=== PATIENT | female | born 1990 | race Hispanic/Latino ===

== ENCOUNTER 2017-05-31 16:42 | Emergency (ER) | payer SELFPAY ==
[2017-05-31 16:51] VITALS: BP 133/88; PULSE 79; RESP 20; TEMP 97.7; O2SAT 99
--- NOTE | 2017-05-31 18:13 | ED PDOC ---
HPI: Female Pain Time Seen by Provider: 05/31/17 17:16 Chief Complaint (Nursing): Female Genitourinary Chief Complaint (Provider): Dysuria History Per: Patient History/Exam Limitations: no limitations Onset/Duration Of Symptoms: Other (month) Additional Complaint(s): Patient is a 26 y/o female with a past medical history of multiple kidney infections presenting to the emergency department for intermittent dysuria ongoing for one month with associated frequency. Reports that she was initially seen at [facility] for the pain and was diagnosed with a kidney infection and given Ciprofloxacin. However, she returned afterwards due to the lack of improvement of symptoms. This time she was prescribed levofloxacin and medication for a yeast infection. Reports finishing her medication on Saturday. The following Saturday (05/28/17) her symptoms returned. She went to [facility] again where bloodwork and a pelvic exam was done. Denies knowing the results of the bloodwork but reports that the urine results were consistent with a UTI finding. She was diagnosed with recurrent urinary tract infection and a yeast infection. Patient was also advised to go to the ED for evaluation. In addition, notes having mild nausea, some constipation initially which developed into diarrhea, some rectal pain, and occasional blood in her stool. Denies taking any medication for the pain, fever, chills, vomiting, or other complaints. PCP in [place]. Past Medical History Reviewed: Historical Data, Nursing Documentation, Vital Signs Vital Signs: Last Vital Signs Temp 97.7 F 05/31/17 16:47 Pulse 79 05/31/17 16:47 Resp 20 05/31/17 16:47 BP 133/88 05/31/17 16:47 Pulse Ox 99 05/31/17 16:47 - Medical History Other PMH: Kidney infection - Surgical History Other surgeries: leep procedure - Family History Family History: States: Other Other Family History: Sibling with kidney cancer - Social History Current smoker - smoking cessation education provided: No Ex-Smoker (has not smoked in the last 12 months): No Alcohol: Social Drugs: Denies - Home Medications Home Medications: Ambulatory Orders Medication Instructions Recorded Nitrofurantoin Macrocrystals 1 cap PO BID #14 cap 05/31/17 [Macrobid] - Allergies Allergies/Adverse Reactions: Allergies Allergy/AdvReac Type Severity Reaction Status Date / Time No Known Allergies Allergy Verified 05/31/17 16:51 Review of Systems ROS Statement: Except As Marked, All Systems Reviewed And Found Negative Constitutional: Negative for: Fever, Chills Gastrointestinal: Positive for: Nausea, Diarrhea, Constipation, Hematochezia ( some), Rectal Pain (some). Negative for: Vomiting Genitourinary Female: Positive for: Dysuria, Frequency Physical Exam - Reviewed Nursing Documentation Reviewed: Yes Vital Signs Reviewed: Yes - Physical Exam Appears: Positive for: Non-toxic, In Acute Distress (mild painful) Head Exam: Positive for: ATRAUMATIC, NORMOCEPHALIC Skin: Positive for: Warm, Dry Eye Exam: Positive for: EOMI, PERRL Neck: Positive for: Painless ROM, Supple Gastrointestinal/Abdominal: Positive for: Soft. Negative for: Tenderness Back: Positive for: Normal Inspection. Negative for: L CVA Tenderness, R CVA Tenderness, Decreased ROM Extremity: Positive for: Normal ROM. Negative for: Deformity Lymphatic: Negative for: Adenopathy Neurologic/Psych: Positive for: Alert. Negative for: Motor/Sensory Deficits - ECG O2 Sat by Pulse Oximetry: 99 (RA) Pulse Ox Interpretation: Normal Medical Decision Making Medical Decision Making: Time: 17:31 Initial impression: recurrent UTI Diagnoses include but are not limited to: renal colic, pyelonephritis, renal mass, vaginitis Initial plan: ED Urine Dipstick ED Urine Chlamydia/GC test Urine Culture Urinalysis Abdominal and transvaginal ultrasound Reevaluation 20:30 Transvaginal ultrasound reviewed. Findings noted as follows: FINDINGS: Uterus/cervix: 0.5 x 0.4 x 0.6 cm uterine mass. Endometrium: 0.2 cm in thickness. Right ovary: No mass. Small follicles. Normal flow. Left ovary: No mass. Small follicles. Normal flow. Free fluid: No significant free fluid. IMPRESSION: 1. Probable fibroid. 20:42 Abdominal ultrasound reviewed. Findings noted as follows: FINDINGS: Right kidney: Normal echogenicity. 0.4 cm shadowing hyperechoic focus within lower pole. No hydronephrosis. Left kidney: Normal echogenicity. 0.9 x 0.7 x 0.9 cm nonshadowing hyperechoic lesion within upper pole. No hydronephrosis. Bladder: Unremarkable. IMPRESSION: 1. Nonobstructing RIGHT renal calculus. 2. LEFT renal lesion. DDX: Angiomyolipoma, nonshadowing calculus, neoplasm. DW pt findings. Strongly encouraged to f/u with nephrology and urology as soon as possible for further evaluation of LEFT renal lesion. She is from [place] and reports that due to the insurance issues, she would rather follow up there, which will not be until later in June. Encouraged to start workup while she is in the area and contact info given for local specialists. Scribe Attestation: Documented by Amelia Angelo, acting as a scribe for Michelle Hooper MD. Provider Scribe Attestation: All medical record entries made by the Scribe were at my direction and personally dictated by me. I have reviewed the chart and agree that the record accurately reflects my personal performance of the history, physical exam, medical decision making, and the department course for this patient. I have also personally directed, reviewed, and agree with the discharge instructions and disposition. Disposition - Clinical Impression Clinical Impression: UTI (urinary tract infection), Renal mass Counseled Patient/Family Regarding: Studies Performed, Diagnosis - Disposition Referrals: Yossi Bowers Jr., MD [Staff Provider] - Deborah Early MD [Staff Provider] - Disposition: Routine/Home Disposition Time: 21:48 Condition: STABLE Additional Instructions: PLEASE CALL THE SPECIALISTS TOMORROW TO SETUP APPOINTMENTS BY THE END OF THE WEEK. TAKE ANTIBIOTICS PRESCRIBED. RETURN TO ER FOR WORSENING SYMPTOMS. Prescriptions: Nitrofurantoin Macrocrystals [Macrobid] 1 cap PO BID #14 cap Instructions: Kidney Stones (ED), Urinary Tract Infection in Women (ED), Kidney Ultrasound (ED)
[2017-05-31 18:44] LABS: RBC URINE 6 /hpf (0-3); URINE BILIRUBIN NEGATIVE (NEGATIVE); URINE BLOOD SMALL (NEGATIVE); URINE COLOR YELLOW (YELLOW); URINE GLUCOSE (UA) NEG (Normal); URINE KETONE TRACE mg/dL (NEGATIVE); URINE LEUKOCYTE ESTERASE LARGE Leu/uL (Negative); URINE PROTEIN NEGATIVE (NEGATIVE); URINE UROBILINOGEN 0.2-1.0 mg/dL (0.2-1.0); WBC URINE 7 /hpf (0-5)
--- NOTE | 2017-06-01 10:10 | US ---
PROCEDURE: HISTORY: bilateral flank pain h/o recurrent pyelo COMPARISON: TECHNIQUE: FINDINGS: The right left kidney measure 9.2 in 10.6 centimeters respectively. There is a 4 millimeter echogenic focus in the lower pole the right kidney possibly representing a calculus. 9 millimeter echogenic mass is noted in the upper pole left kidney possibly representing an angiomyolipoma. Nephrosis is observed. IMPRESSION: Recommend correlation with noncontrast CT scan to confirm and angiomyolipoma in the upper pole left kidney.
--- NOTE | 2017-06-01 10:19 | US ---
PROCEDURE: HISTORY: pelvic pain COMPARISON: TECHNIQUE: FINDINGS: The uterus measures 5.7 x 2.7 x 4.0 centimeters. The endometrium measures 6 millimeters. There is a 5 millimeter fundal leiomyoma. The ovaries have normal sonographic appearance. There is no free pelvis IMPRESSION: Small fundal leiomyoma.
== END 2017-05-31 22:30 | disposition home or self-care (01) ==
LOC: H.ER 16:42
DX: N39.0 Urinary tract infection, site not specified (principal); N20.0 Calculus of kidney; N28.89 Other specified disorders of kidney and ureter